=== PATIENT | female | born 1970 | race Caucasian/White ===

== ENCOUNTER 2017-10-23 06:44 | Emergency (ER) | payer OTHER ==
[~2017-10-23] VITALS: Ht 152.4 cm; Wt 59.4 kg
[~2017-10-23 06:44] MED LIST: AMPH15CA7 PO; BUSP-8 PO; CITA40TA4 PO; DICY20TA10 PO; DTR/5 PO; ZOLP10TA6 PO
[2017-10-23 06:58] VITALS: PULSE 72; TEMP 36.7; O2SAT 98; Ht 152.4 cm; Wt 59.4 kg
[2017-10-23] MEDS ORDERED: HYDCR25 TOP (07:43)
[2017-10-23] MEDS ORDERED: PRED20TA2 PO (07:53)
--- NOTE | 2017-10-23 07:55 | EMERGENCY ROOM VISIT NOTE ---
ED Visit Note First contact with patient: 07:10 The patient was seen and examined with Ayo Harris PA-C. I agree with the history, physical and findings. Please see the note for disposition and details. No signs of infection or scabies. Will treat symptomatically. Advised to have professional ancillary services manager evaluate her living situation as she thinks bed bugs may be the cause. No obvious lower extremity bites. Mostly on upper extremities.
[2017-10-23 08:50] VITALS: BP 116/68
--- NOTE | 2017-10-23 14:05 | EMERGENCY ROOM VISIT NOTE ---
ED Visit Note First contact with patient: 07:10 Chief Complaint: Rash. History of Present Illness: Ms. Johnson is a 47-year-old white female who is brought into the ED via ambulance complaining of a rash on multiple body parts. Patient reports 2 weeks ago she noted that she was developing itchy skin and then developed a diffuse rash on multiple body parts. She reports since that time her symptoms have continued and her rash has felt in other areas. She has not identified any aggravating or alleviating factors related to the rash. She reports she has used [id number] hydrocortisone cream a couple times with no relief of symptoms. Associated with her rash she reports her skin is pruritic. Additionally patient reports she she checked her bed and found bedbugs. She denies fevers, chills, sweats, other skin eruptions, upper respiratory tract symptoms, lip/tongue swelling, cough, shortness of breath, decreased appetite, nausea vomiting, extremity weakness/numbness/tingling. Review of Systems: As noted above in history of present illness. 8 body systems were reviewed and found to be negative as noted above. Past Medical History: Diabetes, heart disease, high blood pressure, gastric ulcers, gallbladder disease, psychiatric disorders and status post tubal ligation Current Medications: Medications Dose Route/Sig Max Daily Dose Days Date Category Ditropan (Oxybutynin Chloride) 5 Mg Tab 5 Mg PO BID 09/23/13 Reported Dicyclomine Hcl 20 Mg Tab 20 Mg PO QID 09/23/13 Reported Zolpidem Tartrate 10 Mg Tab 10 Mg PO HS PRN 09/23/13 Reported Adderall Xr 15MG (Amphetamine-Dextroamphetamine 15MG) 1 Cap Cap 15 Mg PO Q2D 09/23/13 Reported Citalopram Hydrobromide 40 Mg Tab 20 Mg PO BID 09/23/13 Reported Buspirone Hcl 10 Mg Tab 10 Mg PO TID 09/23/13 Reported Allergies to Medications: Patient denies. Social History: Patient is not employed, she is on disability; she lives with family members and feels safe in her home environment; she admits to tobacco and alcohol use. Physical Examination: Vital Signs: Date Time Temp Pulse Resp B/P (MAP) Pulse Ox O2 Delivery O2 Flow Rate FiO2 10/23/17 08:50 20 116/68 10/23/17 06:58 36.7 72 20 137/65 98 Room Air GENERAL: 47-year-old female in mild distress due to symptoms, nontoxic-appearing , afebrile and hemodynamically stable. NEUROLOGICAL: Awake, alert and oriented to person, place and time. Answering questions appropriately and following commands. Normal gait. Good hand eye coordination. SKIN: Warm, dry and pink. Throughout the extremities, back and abdomen patient has a diffuse mildly erythematous papules that have been excoriated and covered with scab. There is no lymphangitis or signs of cellulitis. HEENT: Atraumatic and normocephalic. PERRLA. Sclera white and conjunctiva pink. No drainage from naris. Oral cavity moist and pink. Airway is patent. No tongue swelling. Pharynx is nonerythematous or edematous. Speech normal. No lymphadenopathy. THORAX: Lungs sounds are clear to auscultation and equal bilaterally with symmetrical chest wall. No wheezing, rales or rhonchi. ABDOMEN: Flat, soft and nontender. Positive bowel sounds in all quadrants. No guarding, rigidity or organomegaly. EXTREMITIES: Moves all extremities well on command and with purpose. All distal neurovascular statuses are intact and equal bilaterally. ED Course: Patient is assessed as noted above. Patient's medication list was reviewed. Patient was given 50 mg of Benadryl and 40 mg of prednisone by mouth for her symptoms. Patient's case was reviewed with Dr. Srivastava; we agreed on diagnostic approach, treatment, disposition and plan. Patient was educated about today's findings and instructed on her treatment plan ; she verbalized understanding and agreement with this plan. Clinical Impression: Dermatoses. Bedbugs. Disposition: Patient discharged home in stable condition accompanied by a friend ; prior to departure she was reassessed and subjectively reported she was feeling slightly better. Plan: Comfort measures were discussed with the patient including use of ibuprofen or acetaminophen as needed for pain, cool compresses/ice bags, avoiding hot showers /baths and not itching. Wound care and signs of infection were discussed with the patient. Patient was prescribed hydrocortisone ointment 3 times a day for 7 days. Patient was prescribed prednisone 40 mg once a day for 4 additional days. Patient was encouraged to have follow-up with family physician for recheck and possible referral to dermatology. Patient was encouraged return the ED for worsening symptoms, any signs of infection or any new/concerning symptoms.
== END 2017-10-23 09:19 | disposition home or self-care (01) ==
LOC: EDBD 06:44 → C.EDB 06:47
DX: L98.8 Other specified disorders of the skin and subcutaneous tissue (principal); X58.XXXA Exposure to other specified factors, initial encounter; E11.9 Type 2 diabetes mellitus without complications; Z98.51 Tubal ligation status; Z72.0 Tobacco use

== ENCOUNTER 2018-01-13 09:00 | Observation (INO) | payer OTHER ==
[2018-01-12 12:41] VITALS: BMI 24.0
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
[~2018-01-13] VITALS: Ht 152.4 cm; Wt 56.8 kg
[2018-01-13] VITALS (7 sets, daily range): BP systolic 107–150; BP diastolic 60–88; PULSE 61–89; TEMP 36.7–37; O2SAT 96–100; Ht 152.4 cm; Wt 56.8 kg
[~2018-01-13 09:00] MED LIST changes: -AMPH15CA7 PO; -BUSP-8 PO; +CEFAZOLIN 1000MG IV PUSH 7.5 ML IV SCH; -CITA40TA4 PO; -DICY20TA10 PO; -DTR/5 PO; +IBUP-1428 PO; +LACTATED RINGER'S 1000ML 1,000 ML IV SCH; +OXYC-57 PO; +QUET1TAB34 PO; +ROPIVACAINE 0.5% 5 MG/ML 30 ML VIAL ONE; +SERT50TA PO; -ZOLP10TA6 PO
[2018-01-13 09:28] LABS: HEMATOCRIT 39.2 % (37-47); HEMOGLOBIN 13.2 g/dL (12.0-16.0); MEAN CELL VOLUME 93.8 fL (80-100); MEAN CORPUSCULAR HEMOGLOBIN 31.6 pg (25-34); MEAN PLATELET VOLUME 9.3 fL (7.4-10.4); PLATELET COUNT 265 K/uL (130-400); RED CELL DISTRIBUTION WIDTH CV 13.8 % (11.5-14.5); RED CELL DISTRIBUTION WIDTH SD 47.2 fL (36.4-46.3); WHITE BLOOD COUNT 7.12 K/uL (4.8-10.8)
[2018-01-13 09:34] LABS: MEAN CORPUSCULAR HGB CONC 33.7 g/dl (32-36)
--- NOTE | 2018-01-13 10:34 | History & Physical Bridge Note ---
H&P Re-Evaluation Bridge Note: I have examined the patient, reviewed the History & Physical and in the interval since the performance of the History & Physical I have noted the following changes of clinical significance: No changes noted
[2018-01-13] MEDS ORDERED: FENTANYL CITRATE INJ 50 MCG/1 ML 2 ML VIAL ONE ×3 (10:59→14:01)
[2018-01-13] MEDS ORDERED: MIDAZOLAM HCL 1 MG/ML 2ML VIAL ONE (10:59)
[2018-01-13] MEDS ORDERED: BUPIVACAINE/EPINEPHRINE 0.5% MPF 1:200,000 30 ML VIAL ONE (11:19)
[2018-01-13] MEDS ORDERED: ONDANSETRON INJ 2 MG/ML 2 ML VIAL IV PRN ×2 (12:15→14:45)
[2018-01-13] MEDS ORDERED: HYDROmorphone INJ 2 MG/ML SYR/VIAL IV PRN (12:15)
[2018-01-13] MEDS ORDERED: KETOROLAC TROMETHAMINE 30 MG/ML VIAL IV. PRN (12:15)
[2018-01-13] MEDS ORDERED: LABETALOL HCL IV 5 MG/ML 20ML IV PRN (12:15)
[2018-01-13] MEDS ORDERED: ATROPINE SULFATE 0.1 MG/ML 5ML SYR IV PRN (12:15)
[2018-01-13] MEDS ORDERED: HYDROmorphone INJ 2 MG/ML SYR/VIAL ONE ×2 (12:18→14:11)
[2018-01-13] MEDS ORDERED: DEXAMETHASONE SOD INJ 4 MG/ML VIAL ONE (12:21)
[2018-01-13] MEDS ORDERED: ONDANSETRON INJ 2 MG/ML 2 ML VIAL ONE ×2 (12:21→14:12)
[2018-01-13] MEDS ORDERED: PROPOFOL IV EMULSION 10 MG/ML 20 ML VIAL ONE (12:21)
[2018-01-13] MEDS ORDERED: LIDOCAINE HCL 2% 2 ML VIAL (20MG/ML) ONE (12:21)
--- NOTE | 2018-01-13 13:48 | [facility] Post Operative Brief Note ---
Immediate Operative Summary Operative Date Jan 13, 2018. Pre-Operative Diagnosis RIGHT OLECRANON FRACTURE Post-Operative Diagnosis SAME PREOP Procedure(s) Performed OPEN REDUCTION INTERNAL FIXATION RIGHT ELBOW Surgeon DR. Ankit JUAREZ [employer] System Director Surgeon(s) Antwan MCKEON PAC Estimated Blood Loss 200ML Findings Consistent with Post-Op Diagnosis Specimens NONE Anesthesia Type General Complication(s) none Disposition Accompanied Pt To Recover: no Disposition: Recovery Room / PACU Overlapping Procedure I was present for: the critical portions of procedure. I was immediately available: during the entire case
[2018-01-13] MEDS ORDERED: NEOSTIGMINE METHYLSULFATE 5 MG/5 ML SYR ONE (14:12)
[2018-01-13] MEDS ORDERED: GLYCOPYRROLATE INJ 0.2 MG/ML VIAL ONE (14:12)
[2018-01-13] MEDS ORDERED: KETOROLAC TROMETHAMINE 30 MG/ML VIAL ONE (14:12)
--- NOTE | 2018-01-13 14:29 | DIAGNOSTIC IMAGING REPORT ---
R ELBOW 2 VIEWS CLINICAL HISTORY: RT ORIF DISTAL HUMERUS COMPARISON STUDY: Right elbow 01/11/2018. FINDINGS: Total fluoroscopy time was 49 seconds. 2 fluoroscopic spot images of the right elbow. The patient is status post and internal fixation of a supracondylar distal humeral fracture with cortical plate and screws. The hardware appears intact. The alignment appears near-anatomic. There is also a cortical plate and screws within the proximal ulna. IMPRESSION: Fluoroscopy provided for internal fixation of the distal right humeral fracture. Electronically signed by: Marvin Jacobsen M.D. 01/13/2018 2:28 PM Dictated Date/Time: 01/13/2018 2:26 PM
[2018-01-13] MEDS ORDERED: ZOLPIDEM TARTRATE 5 MG TAB PO PRN (14:45)
[2018-01-13] MEDS ORDERED: METOCLOPRAMIDE HCL INJ 5 MG/ML 2 ML VIAL IV PRN (14:45)
[2018-01-13] MEDS ORDERED: QUETIAPINE FUMARATE 100 MG TAB PO PRN (14:45)
[2018-01-13] MEDS ORDERED: ALUMINUM/MAGNESIUM/SIMETH (MAALOX MAX) 30 ML UDC PO PRN (14:45)
[2018-01-13] MEDS ORDERED: MAGNESIUM HYDROXIDE SUSP 30 ML UDC PO PRN (14:45)
--- NOTE | 2018-01-13 15:09 | DIAGNOSTIC IMAGING REPORT ---
R ELBOW 2 VIEWS CLINICAL HISTORY: post-op ORIF COMPARISON: None. DISCUSSION: Evidence for a prereduction internal fixation of the fracture of the elbow as well as a plate and pin fixation of the proximal ulna. Alignment is anatomic. Moderate soft tissue edematous and postoperative changes are noted. IMPRESSION: Anatomic alignment post open reduction internal fixation right elbow. The above report was generated using voice recognition software. It may contain grammatical, syntax or spelling errors. Electronically signed by: Jonny Yeung M.D. 01/13/2018 3:08 PM Dictated Date/Time: 01/13/2018 3:07 PM
[2018-01-13] MEDS ORDERED: IV FLUIDS COMPLETED PRN (15:15)
--- NOTE | 2018-01-13 15:41 | Anesthesiology Progress Note ---
Anesthesia Post Op Note Date & Time Jan 13, 2018 at 15:41 Vital Signs Pain Intensity: 0 Vital Signs Past 12 Hours Date Time Temp Pulse Resp B/P (MAP) Pulse Ox O2 Delivery O2 Flow Rate FiO2 01/13/18 15:16 138/75 01/13/18 15:13 58 12 100 01/13/18 15:13 58 12 01/13/18 15:11 136/79 01/13/18 15:08 63 10 100 01/13/18 15:08 63 10 01/13/18 15:07 62 12 126/82 100 01/13/18 15:07 62 12 01/13/18 15:05 36.8 65 16 126/82 (86) 100 Nasal Cannula 2 01/13/18 15:02 59 12 100 01/13/18 15:02 59 12 01/13/18 15:01 144/76 01/13/18 14:57 64 13 01/13/18 14:57 62 13 139/75 100 01/13/18 14:52 66 15 127/86 100 01/13/18 14:52 65 15 01/13/18 14:47 63 14 100 01/13/18 14:47 63 14 01/13/18 14:46 144/83 01/13/18 14:44 75 13 01/13/18 14:44 74 13 99 01/13/18 14:42 139/70 01/13/18 14:39 84 16 01/13/18 14:39 84 16 100 01/13/18 14:36 156/95 01/13/18 14:34 36.3 90 16 151/88 (97) 99 Oxymask 10 01/13/18 09:28 37 75 20 150/88 (108) 100 Room Air Notes Mental Status: alert / awake / arousable, participated in evaluation Pt Amnestic to Procedure: Yes Nausea / Vomiting: adequately controlled Pain: adequately controlled Airway Patency, RR, SpO2: stable & adequate BP & HR: stable & adequate Hydration State: stable & adequate Anesthetic Complications: no major complications apparent
--- NOTE | 2018-01-13 15:47 | OPERATIVE REPORT ---
DATE OF OPERATION: 01/13/2018 PREOPERATIVE DIAGNOSIS: Displaced supracondylar humerus fracture, right elbow. POSTOPERATIVE DIAGNOSIS: Displaced supracondylar humerus fracture, right elbow. PROCEDURE: Open reduction internal fixation, supracondylar humerus fracture with olecranon osteotomy. SURGEON: Los Luke MD TEST TECH: Kash Paul PA-C ANESTHESIA: General. COMPLICATIONS: None. Mr. Paul was utilized for all portions of the case including prepping, draping, certified surgical tech/first assistant, wound closure, and dressing with splint application. DESCRIPTION OF PROCEDURE: The patient was placed in the left lateral decubitus position and a bump was used to hang the arm over. A longitudinal posterior incision was made. Subcutaneous tissue was sharply dissected and electrocautery was used for hemostasis. The olecranon was identified and 3 drill holes were placed over the articular area of the olecranon. These drill holes were connected with an chisel creating the olecranon osteotomy. Prior to creating this osteotomy, the ulnar nerve was resected free of surrounding soft tissues and protected with a [place] drain. The dissection both medially and laterally were carried out to elevate the triceps with the olecranon bone. Two Gelpi retractors were used to aid in visualization. Subperiosteal dissection was used to expose the distal humerus and the bone ends of the distal humerus were cleared of callus. An anatomic reduction of the fracture was obtained and fixed using crossed 0.062 K wires. Next, a medial plate medially and a posterior plate laterally were chosen as the size to be used. First, the medial plate was placed and held using a cortical lag screw. Distal fixation with multiple small variable angle locking screws was carried out and an additional locking screw was placed proximally fixing this at the end of the fracture. The medial K-wire was then removed and attention was turned to the posterior plate which was affixed to the posterior aspect of the humerus using a cortical screw. Distal locking was carried out using 3 variable angle locking screws and additional fixation using 3.4 variable angle locking screws were placed posteriorly. Following this, check x-rays were used to confirm screw size. This being confirmed, the olecranon was reduced in its anatomic position and fixed provisionally using an oblique K wire. The olecranon locking plate was used to fix the fracture. Initial cortical screw was used to lag the plate to the bone. Then proximal fixation was carried out using 2.7 variable angle locking screws. Distal fixation using 3.4 mm locking screws was carried out and the cortical screw was removed and replaced with a locking screw as well. Final x-rays revealed anatomic reduction of both the osteotomy and the supracondylar humerus fracture and the wound was irrigated. The muscle was repaired using 2-0 Dexon. Subcutaneous tissues were closed using 2-0 Dexon and skin was closed with bruce. Sterile dressing of Adaptic, 4 x 4's, sterile Webril, and a posterior plaster splint was applied. The patient tolerated the procedure well. I attest to the content of the Intraoperative Record and any orders documented therein. Any exception s are noted below.
[2018-01-13] MEDS: D5W AND 1/2NSS + 20MEQ KCL 1,000 ML IV SCH (16:26)
[2018-01-13] MEDS: ACETAMINOPHEN 500 MG TAB PO SCH ×2 (16:29→23:25)
[2018-01-13] MEDS: FERROUS GLUCONATE 324 MG TAB PO SCH (17:30)
[2018-01-13] MEDS: OXYCODONE HCL IR 5 MG TAB (IMMEDIATE RELEASE) PO PRN ×2 (17:34→21:51)
[2018-01-13] MEDS: DOCUSATE SODIUM 100 MG CAP PO SCH (20:51)
[2018-01-13] MEDS: CEFAZOLIN IV 2,000 MG in SYRINGE 0 ML IV SCH (20:51)
[2018-01-14] MEDS: MoRPHine SULFATE 4 MG/ML 1 ML CARP\\VIAL IV PRN ×2 (01:38→06:38)
[2018-01-14] MEDS: D5W AND 1/2NSS + 20MEQ KCL 1,000 ML IV SCH (02:18)
[2018-01-14] MEDS: CEFAZOLIN IV 2,000 MG in SYRINGE 0 ML IV SCH (04:04)
[2018-01-14 04:18] VITALS: BP 106/66; PULSE 58; TEMP 36.8; O2SAT 97
[2018-01-14] MEDS: OXYCODONE HCL IR 5 MG TAB (IMMEDIATE RELEASE) PO PRN (05:35)
[2018-01-14 06:27] LABS: HEMATOCRIT 27.9 % (37-47); HEMOGLOBIN 9.3 g/dL (12.0-16.0); MEAN CELL VOLUME 93.9 fL (80-100); MEAN CORPUSCULAR HEMOGLOBIN 31.3 pg (25-34); MEAN CORPUSCULAR HGB CONC 33.3 g/dl (32-36); MEAN PLATELET VOLUME 9.9 fL (7.4-10.4); PLATELET COUNT 251 K/uL (130-400); RED CELL DISTRIBUTION WIDTH CV 13.9 % (11.5-14.5); RED CELL DISTRIBUTION WIDTH SD 47.8 fL (36.4-46.3); WHITE BLOOD COUNT 10.48 K/uL (4.8-10.8)
[2018-01-14 06:29] LABS: CALCIUM 7.9 mg/dl (8.5-10.1); CREATININE 0.81 mg/dl (0.60-1.20); POTASSIUM 3.9 mmol/L (3.5-5.1)
[2018-01-14 06:48] VITALS: BP 113/76; PULSE 79; TEMP 36.9; O2SAT 97
--- NOTE | 2018-01-14 07:27 | Orthopedic Progress Note ---
Orthopedic Progress Note Date of Service Jan 14, 2018. Subjective Post OP Day: 1 Reports: feeling well Objective N/V intact (Fingers mobile), splint C/D/I Date Time Temp Pulse Resp B/P (MAP) Pulse Ox O2 Delivery O2 Flow Rate FiO2 01/14/18 06:48 36.9 79 18 113/76 (88) 97 Room Air 01/14/18 04:18 36.8 58 16 106/66 (79) 97 Room Air 01/13/18 23:15 Room Air 01/13/18 22:46 36.9 81 16 109/72 (84) 97 Room Air 01/13/18 20:39 Room Air 01/13/18 18:54 36.8 64 18 107/60 (76) 99 Room Air 01/13/18 17:29 36.7 89 18 107/72 (84) 96 Room Air 01/13/18 16:30 37.0 66 18 121/77 (92) 100 Nasal Cannula 2.0 01/13/18 16:04 36.9 61 18 115/74 (88) 100 Nasal Cannula 2.0 01/13/18 15:30 100 Nasal Cannula 2.0 01/13/18 15:30 36.7 65 16 128/80 (96) 100 Nasal Cannula 2.0 01/13/18 15:30 Nasal Cannula 2.0 01/13/18 15:16 138/75 01/13/18 15:13 58 12 100 01/13/18 15:13 58 12 01/13/18 15:11 136/79 01/13/18 15:08 63 10 100 01/13/18 15:08 63 10 01/13/18 15:07 62 12 126/82 100 18 15:07 62 12 01/13/18 15:05 36.8 65 16 126/82 (86) 100 Nasal Cannula 2 01/13/18 15:02 59 12 100 18 15:02 59 12 01/13/18 15:01 144/76 01/13/18 14:57 64 13 18 14:57 62 13 139/75 100 18 14:52 66 15 127/86 100 18 14:52 65 15 01/13/18 14:47 63 14 100 01/13/18 14:47 63 14 01/13/18 14:46 144/83 01/13/18 14:44 75 13 01/13/18 14:44 74 13 99 01/13/18 14:42 139/70 01/13/18 14:39 84 16 01/13/18 14:39 84 16 100 01/13/18 14:36 156/95 01/13/18 14:34 36.3 90 16 151/88 (97) 99 Oxymask 10 01/13/18 09:28 37 75 20 150/88 (108) 100 Room Air Laboratory Results 24 Hours: Test 01/13/18 09:15 01/14/18 05:20 Hematocrit 39.2 % 27.9 % Hemoglobin 13.2 g/dL 9.3 g/dL Assessment & Plan Assessment: 47 yo female stable POD #1 s/p ORIF right distal humerus fracture Plan: 1. Med management 2. DVT prophylaxis- SCDs 3. D/C planning- home today
[2018-01-14] MEDS ORDERED: RXC5 PO (07:29)
[2018-01-14] MEDS ORDERED: ACET-24 PO (07:29)
--- NOTE | 2018-01-14 07:32 | Discharge Instructions ---
Discharge Instructions Date of Service Jan 14, 2018. Admission Reason for Admission: Other Displaced Fracture Of Lower End Of Right Hum Discharge Discharge Diagnosis / Problem: Right distal humerus fracture Discharge Goals Goal(s): Decrease discomfort, Improve function Activity Recommendations Activity Limitations: as noted below . Instructions / Follow-Up Instructions / Follow-Up Maintain splint/dressing until follow-up with MD. Keep splint clean and dry. Move fingers frequently. Frequent ice and elevation to elbow. Current Hospital Diet Patient's current hospital diet: Regular Diet Discharge Diet Recommended Diet: Regular Diet Procedures Procedures Performed: OPEN REDUCTION INTERNAL FIXATION RIGHT ELBOW Pending Studies Studies pending at discharge: no Medical Emergencies . Who to Call and When: Medical Emergencies: If at any time you feel your situation is an emergency, please call 911 immediately. . Non-Emergent Contact Non-Emergency issues call your: Surgeon Call Non-Emergent contact if: temperature is above 101.5, your pain is not controlled, wound has increased drainage, wound has increased redness . "Provider Documentation" section prepared by Kash Paul PA-C. . [place] Drug Monitoring Program Search Results: patient reviewed within database, no issues identified
--- NOTE | 2018-01-14 07:58 | Anesthesiology Progress Note ---
Anesthesia Post Op Note Date & Time Jan 14, 2018 at 07:58 Vital Signs Pain Intensity: 10.0 Vital Signs Past 12 Hours Date Time Temp Pulse Resp B/P (MAP) Pulse Ox O2 Delivery O2 Flow Rate FiO2 01/14/18 06:48 36.9 79 18 113/76 (88) 97 Room Air 01/14/18 04:18 36.8 58 16 106/66 (79) 97 Room Air 01/13/18 23:15 Room Air 01/13/18 22:46 36.9 81 16 109/72 (84) 97 Room Air 01/13/18 20:39 Room Air Notes Mental Status: alert / awake / arousable, participated in evaluation Pt Amnestic to Procedure: Yes Nausea / Vomiting: adequately controlled Pain: adequately controlled Airway Patency, RR, SpO2: stable & adequate BP & HR: stable & adequate Hydration State: stable & adequate Anesthetic Complications: no major complications apparent
[2018-01-14] MEDS: ACETAMINOPHEN 500 MG TAB PO SCH (08:09)
[2018-01-14] MEDS: FERROUS GLUCONATE 324 MG TAB PO SCH (08:09)
[2018-01-14] MEDS: DOCUSATE SODIUM 100 MG CAP PO SCH (08:09)
[2018-01-14 08:13] VITALS: BP 113/76; PULSE 79; TEMP 36.9; O2SAT 97
[2018-01-14] MEDS ORDERED: SERTRALINE HCL 50 MG TAB PO SCH (09:00)
[2018-01-14] MEDS ORDERED: PANTOprazole SOD 40 MG TAB PO SCH (09:00)
[2018-01-14] MEDS ORDERED: MULTIVITAMIN TAB PO SCH (09:00)
--- NOTE | 2018-01-26 18:56 | DISCHARGE SUMMARY ---
CHIEF COMPLAINT: Right distal humerus fracture. Please see complete history and physical examination. HOSPITAL COURSE: The patient underwent ORIF of her right distal humerus fracture without complication. She tolerated the procedure well and was discharged to recovery room in stable condition. Her postop course was relatively uneventful. Her postoperative pain was reasonably well controlled with a combination of IV and oral pain medications. She was seen and evaluated on the first postop day and was doing well. Her splint was intact. Her fingers were mobile, neurovascularly intact. She was discharged home on postoperative day 1. She will maintain her splint until followup in approximately 10-14 days. She was given a prescription for appropriate pain medication and will follow up as indicated.
== END 2018-01-14 09:25 | disposition home or self-care (01) ==
LOC: C.ACU 09:00 → C.3E 14:41 → ENRESERV 15:04
DX: S42.411A Displaced simple supracondylar fracture without intercondylar fracture of right humerus, initial encounter for closed fracture (principal); Z79.899 Other long term (current) drug therapy; F17.200 Nicotine dependence, unspecified, uncomplicated; F31.31 Bipolar disorder, current episode depressed, mild; V48.4XXA Person boarding or alighting a car injured in noncollision transport accident, initial encounter

== ENCOUNTER 2018-12-24 19:43 | Inpatient (IN) ==
[2018-12-24 20:29] LABS: Appearance Urine Cloudy (Clear); Bilirubin Urine Negative (Negative); Blood Urine Trace (Negative); Color Urine Yellow; Glucose Urine UA Negative (Negative); Ketones Urine Negative (Negative); Leukocyte Esterase Urine Negative (Negative); Nitrite Urine Negative (Negative); Protein Urine Negative (Negative); Specific Gravity Urine 1.012 (1.000-1.030); Urobilinogen Urine Negative (Negative)
[2018-12-24 20:40] LABS: Bacteria Urine Automated 2+ (Negative); Cast Urine Automated 0 /lpf (0-5); Epithelial Cell Urine Auto >30 /lpf (0-5); RBC Urine Automated 0-4 /hpf (0-4)
[2018-12-24 20:40] LABS: Basophils # (auto) 0.03 K/uL (0-0.2); Basophils % (auto) 0.3 %; Eosinophils # (auto) 0.07 K/uL (0-0.5); Eosinophils % (auto) 0.6 %; Hematocrit (blood only) 40.9 % (37-47); Hemoglobin 14.2 g/dL (12.0-16.0); Immature Granulocytes # (auto) 0.07 K/uL (0.00-0.02); Immature Granulocytes % (auto) 0.6 %; Lymphocytes # (auto) 2.05 K/uL (1.2-3.4); Mean Corpuscular Hgb Conc 34.7 g/dL (32-36); Mean Platelet Volume 9.4 fL (7.4-10.4); Monocytes # (auto) 0.53 K/uL (0.11-0.59); Monocytes % (auto) 4.9 %; Neutrophils # (auto) 8.02 K/uL (1.4-6.5); Neutrophils % (auto) 74.6 %; Platelet Count 326 K/uL (130-400); RDW Coefficient of Variation 13.8 % (11.5-14.5); RDW Standard Deviation 44.1 fL (36.4-46.3); Red Blood Count 4.65 M/uL (4.2-5.4); White Blood Count 10.77 K/uL (4.8-10.8)
[2018-12-24 20:45] LABS: Amphetamines+Metham, Urine Neg (Neg); Barbiturates, Urine Neg (Neg); Benzodiazepine, Urine Neg (Neg); Cocaine, Urine Neg (Neg); MDMA (Ecstacy), Urine Neg (Neg); Methadone, Urine Neg (Neg); Opiate, Urine Neg (Neg); Phencyclidine, Urine Neg (Neg)
[2018-12-24 20:55] LABS: Albumin Level 4.1 gm/dl (3.4-5.0); BUN Creatinine Ratio 7.7 (10-20); Calcium 8.5 mg/dl (8.5-10.1); Creatinine Clr Calc Pharmacy 59.4 ml/min; Est GFR (African American) 85.4; Est GFR (Non-African American) 73.7; Potassium 3.5 mmol/L (3.5-5.1)
[2018-12-24 20:58] LABS: Pregnancy Test, Serum Negative (Negative)
[2018-12-24 21:06] LABS: Albumin Globulin Ratio 0.9 (0.9-2); Bilirubin,Total 0.8 mg/dl (0.2-1); Globulin 4.4 gm/dl (2.5-4.0); Total Protein 8.5 gm/dl (6.4-8.2)
[2018-12-24 21:08] LABS: Acetaminophen < 2 ug/ml (10-30); Salicylate 1.9 mg/dl (2.8-20)
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
[2018-12-25] MEDS ORDERED: QUETIAPINE FUMARATE 100 MG TABLET PO STA (00:55)
--- NOTE | 2018-12-25 01:17 | Emergency Department Note ---
ED Visit Note The patient was signed out to me at change of shift. She was medically cleared and evaluated by staff from [facility]. They did not feel that she was appropriate for their floor she will require a private room. A bed search will take place. They were unable to locate a bed in close proximity to this hospital. The patient is voluntary but unwilling to go too far away from home for inpatient psychiatric care. The patient will remain in the emergency department overnight until the bed search can resume in the morning starting with [facility]. The case will be signed out to Dr. block at change of shift awaiting bed placement. . : Alcoholic intoxication Qualifiers: Complication of substance-induced condition: uncomplicated Qualified Code(s): F10.920 - Alcohol use, unspecified with intoxication, uncomplicated Bipolar disorder Qualifiers: Active/Remission status: currently active Current bipolar episode type: mixed Current episode severity: moderate Qualified Code(s): F31.62 - Bipolar disorder, current episode mixed, moderate
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
[2018-12-25] MEDS ORDERED: BISMUTH SUBSALICYLATE PER ML OMNICELL CHARGE PO PRN (10:39)
[2018-12-25] MEDS ORDERED: MAGNESIUM HYDROXIDE SUSP 30 ML UDC PO PRN (10:39)
[2018-12-25] MEDS ORDERED: ACETAMINOPHEN 325 MG TAB PO PRN (10:39)
[2018-12-25] MEDS ORDERED: SODIUM CHLORIDE 0.65% NA SOLN 45 ML (OCEAN) PRN (10:39)
[2018-12-25] MEDS ORDERED: ALUMINUM/MAGNESIUM SUSP 30 ML UDC PO PRN (10:39)
[2018-12-25 13:37] VITALS: O2SAT 98
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
[2018-12-25] MEDS ORDERED: NICOTINE POLACRILEX 2 MG GUM MT PRN (15:33)
[2018-12-25] MEDS: QUETIAPINE FUMARATE 100 MG TABLET PO SCH (20:52)
[2018-12-25] MEDS: NICOTINE 14 MG/24 HR PATCH TD SCH (20:53)
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
[2018-12-26] MEDS: SERTRALINE HCL 100 MG TABLET PO SCH (09:04)
[2018-12-26] MEDS: NICOTINE 14 MG/24 HR PATCH TD SCH (09:04)
[2018-12-26] MEDS: QUETIAPINE FUMARATE 100 MG TABLET PO SCH (21:03)
[2018-12-27] MEDS: NICOTINE 14 MG/24 HR PATCH TD SCH (07:38)
[2018-12-27] MEDS: SERTRALINE HCL 100 MG TABLET PO SCH (07:38)
[2018-12-27 08:05] LABS: Glucose Fasting 86 mg/dl (70-99)
[2018-12-27 08:11] LABS: Chol HDL Ratio 4; Cholesterol 225 mg/dl (0-200); HDL Cholesterol 65 mg/dl; LDL Cholesterol Calculated 127 mg/dl; Triglycerides 167 mg/dl (0-150); VLDL Cholesterol 33 mg/dl
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
[2018-12-27] MEDS: QUETIAPINE FUMARATE 100 MG TABLET PO SCH (21:01)
[2018-12-28 06:46] VITALS: TEMP 97.9
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
[2018-12-28] MEDS: SERTRALINE HCL 100 MG TABLET PO SCH (09:01)
[2018-12-28] MEDS: NICOTINE 14 MG/24 HR PATCH TD SCH (09:02)
[2018-12-28 10:40] VITALS: BP 158/86; PULSE 85
== END 2018-12-28 14:30 | disposition home or self-care (01) | DRG 885 ==
LOC: ED 19:43 → 3S 12-25 10:39